=== PATIENT | male | born 1965 | race Hispanic/Latino ===

== ENCOUNTER 2020-08-26 15:41 | Emergency (ER) | payer OTHER, SELFPAY ==
[~2020-08-26 15:41] MED LIST: Iopamidol-370 76% 500 ML 1 ML ONE
[2020-08-26] MEDS ORDERED: Ondansetron PF 4 MG/2 ML Vial ONE (16:25)
[2020-08-26] MEDS ORDERED: Morphine 4 MG/ML VIAL ONE (16:25)
[2020-08-26 16:27] LABS: #Eosinphils 0.6 thou/uL (0.0-0.7); #Lymphocytes 1.9 thou/uL (1.20-3.40); #Monocytes 1.1 thou/uL (0.11-0.59); #Neutrophils 4.2 thou/uL (1.40-6.50); %Basophils 0.6 % (0.0-1.0); %Eosinophils 7.1 % (0.0-10.0); %Lymphocytes 24.3 % (21.0-51.0); %Monocytes 14.1 % (0.0-10.0); %Neutrophils 53.9 % (42.0-75.0); Hemoglobin 15.7 g/dL (14.0-18.0); Mean Corpuscular HGB CONC 33.5 g/dL (32.0-36.0); Mean Corpuscular Hemoglobin 30.1 pg (27.0-31.0); Mean Corpuscular Volume 89.9 fL (78.0-98.0); Mean Platelet Volume 8.7 fL (7.4-10.4); Platelet Count 179 thou/uL (130-400); RBC Distribution Width 12.3 % (11.5-14.5); Red Blood Cell (RBC) Count 5.23 mill/uL (4.70-6.10); White Blood Cell (WBC) Count 7.8 thou/uL (4.8-10.8)
[2020-08-26 16:56] LABS: ALT (SGPT) 33 U/L (8-55); AST (SGOT) 26 U/L (5-34); Albumin 3.9 g/dL (3.5-5.0); Alkaline Phosphatase 78 U/L (40-110); Anion Gap 13 mmol/L (10-20); BUN (Urea Nitrogen) 23 mg/dL (8.4-25.7); Bilirubin, Total 1.1 mg/dL (0.2-1.2); Calc. Creatinine Clearance 0 mL/min (70-130); Carbon Dioxide 26 mmol/L (22-29); Chloride 103 mmol/L (98-107); Globulin 3.5 g/dL (2.4-3.5); Glucose 136 mg/dL (70-105); Lipase 77 U/L (8-78); Potassium 3.5 mmol/L (3.5-5.1); Protein, Total 7.4 g/dL (6.0-8.3); Sodium 138 mmol/L (136-145)
[2020-08-27 01:57] LABS: SARS-CoV-2 PCR by NAA Not Detected (NotDetected)
== END 2020-08-26 18:34 | disposition home or self-care (01) ==
LOC: ERS 15:41
DX: K42.9 Umbilical hernia without obstruction or gangrene (principal); Z20.822 Contact with and (suspected) exposure to COVID-19
CPT/HCPCS: 74177; 80053; 83605; 83690; 85025; 87635; 96374; 96375; J2270; J2405; Q9967; U0003; U0005

== ENCOUNTER 2021-11-12 09:37 | Inpatient (IN) | payer OTHER, SELFPAY ==
[2021-11-12 10:36] LABS: #Lymphocytes 1.3 thou/uL (1.20-3.40); #Monocytes 1.6 thou/uL (0.11-0.59); #Neutrophils 14.6 thou/uL (1.40-6.50); %Basophils 0.2 % (0.0-1.0); %Eosinophils 0.1 % (0.0-10.0); %Lymphocytes 7.5 % (21.0-51.0); %Neutrophils 83.1 % (42.0-75.0); Mean Corpuscular HGB CONC 32.7 g/dL (32.0-36.0); Mean Corpuscular Hemoglobin 30.5 pg (27.0-31.0); Mean Corpuscular Volume 93.3 fL (78.0-98.0); Mean Platelet Volume 8.9 fL (7.4-10.4); Platelet Count 170 thou/uL (130-400); RBC Distribution Width 12.6 % (11.5-14.5); Red Blood Cell (RBC) Count 5.23 mill/uL (4.70-6.10); White Blood Cell (WBC) Count 17.6 thou/uL (4.8-10.8)
[2021-11-12 10:53] LABS: ALT (SGPT) 27 U/L (8-55); AST (SGOT) 23 U/L (5-34); Albumin 4.2 g/dL (3.5-5.0); Alkaline Phosphatase 81 U/L (40-110); Anion Gap 12 mmol/L (10-20); BUN (Urea Nitrogen) 22 mg/dL (8.4-25.7); Bilirubin, Total 1.6 mg/dL (0.2-1.2); CK (CPK) 216 U/L (30-200); Calc. Creatinine Clearance 0 mL/min (70-130); Calcium 9.6 mg/dL (7.8-10.44); Carbon Dioxide 28 mmol/L (22-29); Chloride 100 mmol/L (98-107); Estimated GFR 56; Globulin 4.1 g/dL (2.4-3.5); Glucose 110 mg/dL (70-105); Lipase 173 U/L (8-78); Potassium 3.5 mmol/L (3.5-5.1); Protein, Total 8.3 g/dL (6.0-8.3); Sodium 136 mmol/L (136-145)
[2021-11-12 11:19] LABS: CKMB 1.2 ng/mL (0-6.6)
[2021-11-12 11:45] LABS: SARS-CoV-2 NAA Rapid Test Not Detected (NotDetected)
[2021-11-12] MEDS ORDERED: Aspirin Chewable 81 MG TAB ONE (11:50)
[2021-11-12 12:30] LABS: Bilirubin Negative (Negative); Blood, Urine 2+ (Negative); Clarity Clear (Clear); Glucose, Urine (Dipstick) 30 mg/dL (Negative); Ketone, Urine 10 mg/dL (Negative); Leukocyte Negative Leu/uL (Negative); Nitrite Negative (Negative); Protein, Urine (Dipstick) 200 mg/dL (Neg-Trace); RBC/HPF 0-3 HPF (0-3); Squamous Epithelial None Seen HPF (0-3); Urobilinogen Normal mg/dL (Less than 2); WBC/HPF 0-3 HPF (0-3)
[2021-11-12 12:32] LABS: Bacteria/HPF Rare-Few HPF (None Seen)
[2021-11-12] MEDS ORDERED: Vancomycin 1 GM/200 ML BAG ONE (12:40)
[2021-11-12] MEDS ORDERED: Cefepime 2 GM VIAL ONE (12:40)
[2021-11-12] MEDS ORDERED: Ondansetron PF 4 MG/2 ML Vial IVP PRN (14:08)
[2021-11-12] MEDS ORDERED: Acetaminophen 325 MG TAB PO PRN (14:08)
[2021-11-12] MEDS ORDERED: Loperamide HCl 2 MG CAP PO PRN (14:13)
[2021-11-12 16:28] LABS: Hemoglobin A1c 5.3 % (4.0-6.0)
[2021-11-12 17:08] LABS: Amphetamine Not Detected (NotDetected); Barbiturates Screen Not Detected (NotDetected); Benzodiazepine Screen Not Detected (NotDetected); Cocaine Metabolite Screen Detected (NotDetected); Methadone Not Detected (NotDetected); Methamphetamine Not Detected (NotDetected); Opiate Screen Not Detected (NotDetected); Oxycodone Screen Not Detected (NotDetected); Phencyclidine (PCP) Not Detected (NotDetected); THC/Cannabinoid Screen Detected (NotDetected); Tricyclic Screen Not Detected (NotDetected)
[2021-11-12 17:08] LABS: Troponin I 0.037 ng/mL (< 0.028)
[2021-11-12] MEDS: Lactated Ringer's 1,000 ML IV SCH (18:16)
[2021-11-12] MEDS ORDERED: Labetalol HCl 100 MG/20 ML VIAL SLOW IVP PRN (18:41)
[2021-11-12] MEDS ORDERED: hydrALAZINE 20 MG/ML VIAL SLOW IVP PRN (18:41)
[2021-11-12] MEDS: Acetaminophen 500 MG TAB PO PRN (20:54)
[2021-11-12] MEDS ORDERED: Famotidine/PF 20 mg/2ml Vial SLOW IVP SCH (21:00)
[2021-11-13] MEDS: Lactated Ringer's 1,000 ML IV SCH ×3 (02:30→21:01)
[2021-11-13] MEDS: Acetaminophen 500 MG TAB PO PRN ×2 (04:19→17:00)
[2021-11-13 05:10] LABS: #Monocytes 1.8 thou/uL (0.11-0.59); #Neutrophils 13.5 thou/uL (1.40-6.50); %Basophils 0.1 % (0.0-1.0); %Eosinophils 0.2 % (0.0-10.0); %Lymphocytes 6.2 % (21.0-51.0); %Monocytes 10.9 % (0.0-10.0); %Neutrophils 82.6 % (42.0-75.0); Hemoglobin 15.4 g/dL (14.0-18.0); Mean Corpuscular HGB CONC 32.8 g/dL (32.0-36.0); Mean Corpuscular Hemoglobin 30.7 pg (27.0-31.0); Mean Corpuscular Volume 93.5 fL (78.0-98.0); Mean Platelet Volume 9.2 fL (7.4-10.4); Platelet Count 162 thou/uL (130-400); RBC Distribution Width 12.6 % (11.5-14.5); White Blood Cell (WBC) Count 16.3 thou/uL (4.8-10.8)
[2021-11-13 05:19] LABS: ALT (SGPT) 25 U/L (8-55); AST (SGOT) 26 U/L (5-34); Albumin 3.9 g/dL (3.5-5.0); Alkaline Phosphatase 71 U/L (40-110); Anion Gap 15 mmol/L (10-20); BUN (Urea Nitrogen) 16 mg/dL (8.4-25.7); Bilirubin, Total 1.3 mg/dL (0.2-1.2); Calc. Creatinine Clearance 87 mL/min (70-130); Calcium 8.8 mg/dL (7.8-10.44); Carbon Dioxide 22 mmol/L (22-29); Cardiac Risk 4.8 (Less than 4.5); Chloride 103 mmol/L (98-107); Cholesterol 162 mg/dl (< 200 Desired); Estimated GFR 74; Globulin 3.9 g/dL (2.4-3.5); Glucose 101 mg/dL (70-105); HDL Cholesterol 34 mg/dL (>60 Neg Risk); LDL Cholesterol, Calculated 105 mg/dL; Potassium 3.6 mmol/L (3.5-5.1); Protein, Total 7.8 g/dL (6.0-8.3); Sodium 136 mmol/L (136-145); Triglycerides 117 mg/dL (Less than 150)
[2021-11-13] MEDS ORDERED: Lorazepam 2 MG/ML VIAL IM PRN (11:21)
[2021-11-13] MEDS ORDERED: Lorazepam 1 MG TAB PO PRN (11:21)
[2021-11-13] MEDS ORDERED: NIFEdipine XL 30 MG TAB PO SCH (11:30)
[2021-11-13] MEDS ORDERED: Folic Acid 1 MG TAB PO SCH (11:30)
[2021-11-13] MEDS ORDERED: Multivit, Therapeutic 1 TAB PO SCH (11:30)
[2021-11-13] MEDS ORDERED: Electrolyte Replacement Protocol 1 EACH FS SCH (11:30)
[2021-11-13] MEDS: Lorazepam 1 MG TAB PO SCH ×2 (12:00→17:01)
[2021-11-13] MEDS: Thiamine HCl 200 MG/2 ML VIAL SLOW IVP SCH (12:01)
[2021-11-13] MEDS: Ondansetron ODT 4 MG TAB PO PRN (12:05)
[2021-11-13 12:36] LABS: Phosphorus 1.3 mg/dL (2.3-4.7)
[2021-11-13] MEDS ORDERED: Magnesium 2 GM/50 ML(in water) 2 GM in Premix Bag 1 BAG IVPB SCH (14:00)
[2021-11-13] MEDS ORDERED: Potassium Phosphate 9 MMOL in Sodium Chloride 0.9% 100 ML IVPB SCH (14:00)
[2021-11-13] MEDS: PHOS-NAK 1 PKT PACK PO SCH ×3 (14:51→21:08)
[2021-11-13 14:58] LABS: Syphilis Antibody Nonreactive (Nonreactive); Syphilis Antibody Index 0.06 S/CO (<1.00 Non-Reactive)
[2021-11-14] MEDS: Lorazepam 1 MG TAB PO SCH ×3 (00:01→10:04)
[2021-11-14] MEDS: Lactated Ringer's 1,000 ML IV SCH ×3 (00:01→17:42)
[2021-11-14] MEDS: Ondansetron ODT 4 MG TAB PO PRN (00:06)
[2021-11-14] MEDS: PHOS-NAK 1 PKT PACK PO SCH (02:14)
[2021-11-14] MEDS: Acetaminophen 500 MG TAB PO PRN ×2 (02:19→21:32)
[2021-11-14 05:00] LABS: #Lymphocytes 1.7 thou/uL (1.20-3.40); #Monocytes 2.3 thou/uL (0.11-0.59); #Neutrophils 11.5 thou/uL (1.40-6.50); %Basophils 0.1 % (0.0-1.0); %Eosinophils 0.3 % (0.0-10.0); %Lymphocytes 11.1 % (21.0-51.0); %Monocytes 14.7 % (0.0-10.0); %Neutrophils 73.8 % (42.0-75.0); Hemoglobin 14.2 g/dL (14.0-18.0); Mean Corpuscular HGB CONC 33.1 g/dL (32.0-36.0); Mean Corpuscular Hemoglobin 31.1 pg (27.0-31.0); Mean Platelet Volume 8.7 fL (7.4-10.4); Platelet Count 172 thou/uL (130-400); RBC Distribution Width 12.6 % (11.5-14.5); Red Blood Cell (RBC) Count 4.57 mill/uL (4.70-6.10); White Blood Cell (WBC) Count 15.6 thou/uL (4.8-10.8)
[2021-11-14 05:19] LABS: ALT (SGPT) 36 U/L (8-55); AST (SGOT) 35 U/L (5-34); Albumin 3.6 g/dL (3.5-5.0); Alkaline Phosphatase 61 U/L (40-110); Anion Gap 14 mmol/L (10-20); BUN (Urea Nitrogen) 17 mg/dL (8.4-25.7); Calc. Creatinine Clearance 87 mL/min (70-130); Calcium 8.3 mg/dL (7.8-10.44); Carbon Dioxide 24 mmol/L (22-29); Chloride 102 mmol/L (98-107); Estimated GFR 73; Globulin 3.6 g/dL (2.4-3.5); Glucose 103 mg/dL (70-105); Potassium 3.6 mmol/L (3.5-5.1); Protein, Total 7.2 g/dL (6.0-8.3); Sodium 136 mmol/L (136-145)
[2021-11-14 06:23] LABS: Phosphorus 3.5 mg/dL (2.3-4.7)
[2021-11-14] MEDS ORDERED: ISOVUE-370 76%-LOCM 1 ML ONE (08:00)
[2021-11-14] MEDS: Folic Acid 1 MG TAB PO SCH (08:38)
[2021-11-14] MEDS: Multivit, Therapeutic 1 TAB PO SCH (08:38)
[2021-11-14] MEDS: NIFEdipine XL 30 MG TAB PO SCH (08:39)
[2021-11-14] MEDS ORDERED: chlordiazePOXIDE HCl 25 MG CAP PO SCH (09:00)
[2021-11-14] MEDS: Enoxaparin Sodium 40 MG/0.4 ML SYRINGE SC SCH (10:03)
[2021-11-14 11:03] LABS: Actual Bicarbonate (HCO3a) 25.6 mEq/L (22-28); CO2 Tension 45.1 mmHg (35.0-45.0); Calcium, Ionized (arterial) 1.15 mmol/L (1.12-1.30); Carboxyhemoglobin (COHb) 1.2 gm% (0.0-3.0); Hemoglobin (Hb) 14.9 g/dL (14.0-18.0); Potassium - ABG Lab 3.57 mmol/L (3.70-5.30); pH, Arterial 7.37 (7.35-7.45)
[2021-11-14 11:10] LABS: O2 Tension (PaO2), arterial 35.8 mmHg (80.0-100.0)
[2021-11-14 11:11] LABS: ALV-art Gradient 57.555 mmHg (0-20); Puncture Site RRA
[2021-11-14] MEDS ORDERED: Lorazepam 1 MG TAB PO PRN (11:22)
[2021-11-14] MEDS ORDERED: Ventilator Sedation Protocol 1 EACH FS ONE (11:55)
[2021-11-14] MEDS: Vecuronium 10 MG VIAL IV PRN ×10 (12:07→23:16)
[2021-11-14 12:11] LABS: Base Excess (BEa) 1.1 mEq/L (-2.0 to +3.0); CO2 Tension 33.4 mmHg (35.0-45.0); Calcium, Ionized (arterial) 1.07 mmol/L (1.12-1.30); Carboxyhemoglobin (COHb) 0.7 gm% (0.0-3.0); Hemoglobin (Hb) 14.3 g/dL (14.0-18.0); O2 Tension (PaO2), arterial 86.4 mmHg (80.0-100.0); Potassium - ABG Lab 3.31 mmol/L (3.70-5.30); pH, Arterial 7.48 (7.35-7.45)
[2021-11-14 12:12] LABS: Puncture Site LRA
[2021-11-14] MEDS ORDERED: Propofol BOLUS 1,000 MG/100 ML VIAL IV PRN (12:15)
[2021-11-14] MEDS ORDERED: Morphine 4 MG/ML VIAL SLOW IVP PRN (12:15)
[2021-11-14] MEDS ORDERED: Fentanyl BOLUS 250 ML IVPB PRN (12:15)
[2021-11-14] MEDS ORDERED: DISCONTINUE PREVIOUS NARCOTIC PAIN MEDICATIONS AND BENZODIAZEPINES FS SCH (12:15)
[2021-11-14] MEDS: Propofol 1,000 MG/100 ML VIAL IV PRN ×3 (12:44→17:39)
[2021-11-14 13:15] LABS: Amphetamine Not Detected (NotDetected); Barbiturates Screen Not Detected (NotDetected); Benzodiazepine Screen Detected (NotDetected); Cocaine Metabolite Screen Detected (NotDetected); Methadone Not Detected (NotDetected); Methamphetamine Not Detected (NotDetected); Opiate Screen Not Detected (NotDetected); Oxycodone Screen Not Detected (NotDetected); Phencyclidine (PCP) Not Detected (NotDetected); THC/Cannabinoid Screen Detected (NotDetected); Tricyclic Screen Not Detected (NotDetected)
[2021-11-14] MEDS: cefTRIAXone\\ROCEPHIN 2 GM in Sodium Chloride 0.9% 100 ML IVPB SCH (13:30)
[2021-11-14] MEDS: Thiamine HCl 200 MG/2 ML VIAL SLOW IVP SCH (13:41)
[2021-11-14] MEDS: Sucralfate 1 GM TAB PO SCH ×3 (13:42→21:33)
[2021-11-14] MEDS ORDERED: Fentanyl CADD 100 ML ONE (15:17)
[2021-11-14 15:21] LABS: Campy jejuni + coli by PCR Negative (Negative); STEC Shiga Toxin 1+2 Negative (Negative); Salmonella spp. by PCR Negative (Negative); Shigella spp + EIEC by PCR Negative (Negative)
[2021-11-14] MEDS: Fentanyl CADD 100 ML IV SCH (15:21)
[2021-11-14] MEDS ORDERED: Famotidine/PF 20 mg/2ml Vial SLOW IVP SCH (21:00)
[2021-11-14] MEDS ORDERED: Lactated Ringer's 1,000 ML IV SCH (21:15)
[2021-11-14] MEDS: Sodium Chloride 0.9% 1,000 ML IV SCH (21:33)
[2021-11-15] MEDS: Sodium Chloride 0.9% 1,000 ML IV SCH ×2 (00:35→09:10)
[2021-11-15] MEDS: Vecuronium 10 MG VIAL IV PRN ×8 (00:39→15:39)
[2021-11-15] MEDS: Propofol 1,000 MG/100 ML VIAL IV PRN ×5 (02:11→21:17)
[2021-11-15 03:58] LABS: #Basophils 0.1 thou/uL (0.0-0.2); #Eosinphils 0.1 thou/uL (0.0-0.7); #Lymphocytes 1.8 thou/uL (1.20-3.40); #Monocytes 2.1 thou/uL (0.11-0.59); %Basophils 0.5 % (0.0-1.0); %Eosinophils 0.8 % (0.0-10.0); %Lymphocytes 12.8 % (21.0-51.0); %Monocytes 14.9 % (0.0-10.0); %Neutrophils 70.9 % (42.0-75.0); Mean Corpuscular HGB CONC 34.3 g/dL (32.0-36.0); Mean Corpuscular Hemoglobin 31.5 pg (27.0-31.0); Mean Platelet Volume 9.1 fL (7.4-10.4); Platelet Count 146 thou/uL (130-400); RBC Distribution Width 12.5 % (11.5-14.5); Red Blood Cell (RBC) Count 4.45 mill/uL (4.70-6.10); White Blood Cell (WBC) Count 14.2 thou/uL (4.8-10.8)
[2021-11-15 04:21] LABS: ALT (SGPT) 26 U/L (8-55); AST (SGOT) 26 U/L (5-34); Albumin 2.9 g/dL (3.5-5.0); Alkaline Phosphatase 56 U/L (40-110); Anion Gap 16 mmol/L (10-20); BUN (Urea Nitrogen) 17 mg/dL (8.4-25.7); Bilirubin, Total 1.1 mg/dL (0.2-1.2); Calc. Creatinine Clearance 93 mL/min (70-130); Calcium 8.3 mg/dL (7.8-10.44); Carbon Dioxide 19 mmol/L (22-29); Chloride 104 mmol/L (98-107); Estimated GFR 80; Globulin 3.3 g/dL (2.4-3.5); Glucose 74 mg/dL (70-105); Potassium 3.4 mmol/L (3.5-5.1); Protein, Total 6.2 g/dL (6.0-8.3); Sodium 136 mmol/L (136-145)
[2021-11-15] MEDS: Acetaminophen 500 MG TAB PO PRN ×3 (05:36→21:43)
[2021-11-15] MEDS ORDERED: Sterile Water 10 ML ONE (06:49)
[2021-11-15] MEDS: Potassium Chloride 20 MEQ in Premix Bag 1 BAG IVPB SCH ×2 (06:54→09:06)
[2021-11-15] MEDS ORDERED: Fentanyl CADD 100 ML ONE (08:00)
[2021-11-15] MEDS: Fentanyl CADD 100 ML IV SCH ×2 (08:03→21:20)
[2021-11-15] MEDS: Sucralfate 1 GM TAB PO SCH ×4 (08:38→21:31)
[2021-11-15] MEDS: Enoxaparin Sodium 40 MG/0.4 ML SYRINGE SC SCH (08:44)
[2021-11-15] MEDS: Pantoprazole 40 MG VIAL IVP SCH (08:44)
[2021-11-15] MEDS: Folic Acid 1 MG TAB PO SCH (08:45)
[2021-11-15] MEDS: NIFEdipine XL 30 MG TAB PO SCH (08:45)
[2021-11-15] MEDS: Multivit, Therapeutic 1 TAB PO SCH (08:45)
[2021-11-15] MEDS: Lorazepam 2 MG/ML VIAL SLOW IVP PRN ×3 (10:08→13:36)
[2021-11-15] MEDS ORDERED: Furosemide 20 MG/2 ML VIAL SLOW IVP SCH (11:15)
[2021-11-15] MEDS: Thiamine HCl 200 MG/2 ML VIAL SLOW IVP SCH (11:18)
[2021-11-15] MEDS ORDERED: Lorazepam 1 MG TAB PO PRN (11:22)
[2021-11-15] MEDS ORDERED: Lorazepam 0.5 MG TAB PO SCH (11:30)
[2021-11-15] MEDS: cefTRIAXone\\ROCEPHIN 2 GM in Sodium Chloride 0.9% 100 ML IVPB SCH (13:21)
[2021-11-16] MEDS: Propofol 1,000 MG/100 ML VIAL IV PRN ×7 (00:37→22:36)
[2021-11-16 03:55] LABS: #Basophils 0.1 thou/uL (0.0-0.2); #Eosinphils 0.4 thou/uL (0.0-0.7); #Lymphocytes 1.2 thou/uL (1.20-3.40); #Monocytes 1.5 thou/uL (0.11-0.59); %Basophils 0.6 % (0.0-1.0); %Lymphocytes 8.9 % (21.0-51.0); %Monocytes 11.3 % (0.0-10.0); %Neutrophils 76.1 % (42.0-75.0); Hemoglobin 12.2 g/dL (14.0-18.0); Mean Corpuscular HGB CONC 32.6 g/dL (32.0-36.0); Mean Corpuscular Hemoglobin 30.3 pg (27.0-31.0); Mean Corpuscular Volume 92.7 fL (78.0-98.0); Mean Platelet Volume 9.3 fL (7.4-10.4); Platelet Count 183 thou/uL (130-400); RBC Distribution Width 12.6 % (11.5-14.5); Red Blood Cell (RBC) Count 4.02 mill/uL (4.70-6.10); White Blood Cell (WBC) Count 13.1 thou/uL (4.8-10.8)
[2021-11-16 04:18] LABS: ALT (SGPT) 20 U/L (8-55); AST (SGOT) 17 U/L (5-34); Albumin 2.7 g/dL (3.5-5.0); Alkaline Phosphatase 55 U/L (40-110); Anion Gap 15 mmol/L (10-20); BUN (Urea Nitrogen) 18 mg/dL (8.4-25.7); Bilirubin, Total 0.7 mg/dL (0.2-1.2); Calc. Creatinine Clearance 83 mL/min (70-130); Calcium 8.1 mg/dL (7.8-10.44); Carbon Dioxide 21 mmol/L (22-29); Chloride 104 mmol/L (98-107); Estimated GFR 70; Globulin 3.3 g/dL (2.4-3.5); Glucose 81 mg/dL (70-105); Potassium 3.1 mmol/L (3.5-5.1); Sodium 137 mmol/L (136-145)
[2021-11-16] MEDS: Potassium Chloride 20 MEQ in Premix Bag 1 BAG IVPB SCH ×2 (06:05→09:45)
[2021-11-16] MEDS: Fentanyl CADD 100 ML IV SCH ×2 (06:51→16:57)
[2021-11-16 07:04] LABS: Actual Bicarbonate (HCO3a) 19.4 mEq/L (22-28); Calcium, Ionized (arterial) 1.12 mmol/L (1.12-1.30); Carboxyhemoglobin (COHb) 0.3 gm% (0.0-3.0); Hemoglobin (Hb) 13.4 g/dL (14.0-18.0); O2 Tension (PaO2), arterial 64.8 mmHg (80.0-100.0); Potassium - ABG Lab 3.09 mmol/L (3.70-5.30); pH, Arterial 7.51 (7.35-7.45)
[2021-11-16 07:26] LABS: CO2 Tension 24.8 mmHg (35.0-45.0); Puncture Site LRA
[2021-11-16] MEDS: Sucralfate 1 GM TAB PO SCH ×4 (08:06→20:03)
[2021-11-16] MEDS: Enoxaparin Sodium 40 MG/0.4 ML SYRINGE SC SCH (09:45)
[2021-11-16] MEDS: Pantoprazole 40 MG VIAL IVP SCH (09:46)
[2021-11-16] MEDS: Multivit, Therapeutic 1 TAB PO SCH (09:48)
[2021-11-16] MEDS: Folic Acid 1 MG TAB PO SCH (09:48)
[2021-11-16] MEDS: NIFEdipine XL 30 MG TAB PO SCH (09:49)
[2021-11-16] MEDS ORDERED: Lorazepam 0.5 MG TAB PO PRN (11:22)
[2021-11-16] MEDS: Thiamine 100 MG TAB PO SCH (11:57)
[2021-11-16] MEDS: cefTRIAXone\\ROCEPHIN 2 GM in Sodium Chloride 0.9% 100 ML IVPB SCH (12:14)
[2021-11-17] MEDS: Fentanyl CADD 100 ML IV SCH (00:37)
[2021-11-17] MEDS: Lorazepam 2 MG/ML VIAL SLOW IVP PRN (01:44)
[2021-11-17] MEDS: Propofol 1,000 MG/100 ML VIAL IV PRN ×2 (01:44→05:21)
[2021-11-17 04:05] LABS: #Eosinphils 0.5 thou/uL (0.0-0.7); #Lymphocytes 1.2 thou/uL (1.20-3.40); #Monocytes 1.1 thou/uL (0.11-0.59); #Neutrophils 7.9 thou/uL (1.40-6.50); %Basophils 0.1 % (0.0-1.0); %Eosinophils 4.3 % (0.0-10.0); %Lymphocytes 11.1 % (21.0-51.0); %Neutrophils 74.5 % (42.0-75.0); Hemoglobin 12.2 g/dL (14.0-18.0); Mean Corpuscular HGB CONC 32.4 g/dL (32.0-36.0); Mean Corpuscular Hemoglobin 30.4 pg (27.0-31.0); Mean Corpuscular Volume 93.9 fL (78.0-98.0); Mean Platelet Volume 9.5 fL (7.4-10.4); Platelet Count 202 thou/uL (130-400); RBC Distribution Width 12.9 % (11.5-14.5); Red Blood Cell (RBC) Count 4.02 mill/uL (4.70-6.10); White Blood Cell (WBC) Count 10.6 thou/uL (4.8-10.8)
[2021-11-17 04:28] LABS: ALT (SGPT) 19 U/L (8-55); AST (SGOT) 19 U/L (5-34); Albumin 2.8 g/dL (3.5-5.0); Alkaline Phosphatase 79 U/L (40-110); Anion Gap 14 mmol/L (10-20); BUN (Urea Nitrogen) 18 mg/dL (8.4-25.7); Bilirubin, Total 0.6 mg/dL (0.2-1.2); Calc. Creatinine Clearance 115 mL/min (70-130); Calcium 8.5 mg/dL (7.8-10.44); Carbon Dioxide 22 mmol/L (22-29); Chloride 105 mmol/L (98-107); Estimated GFR 101; Globulin 3.5 g/dL (2.4-3.5); Glucose 78 mg/dL (70-105); Potassium 3.2 mmol/L (3.5-5.1); Protein, Total 6.3 g/dL (6.0-8.3); Sodium 138 mmol/L (136-145)
[2021-11-17 07:14] LABS: CO2 Tension 29.3 mmHg (35.0-45.0); Calcium, Ionized (arterial) 1.13 mmol/L (1.12-1.30); Carboxyhemoglobin (COHb) 0.4 gm% (0.0-3.0); Hemoglobin (Hb) 15.3 g/dL (14.0-18.0); O2 Tension (PaO2), arterial 98.7 mmHg (80.0-100.0); Potassium - ABG Lab 3.12 mmol/L (3.70-5.30); pH, Arterial 7.49 (7.35-7.45)
[2021-11-17 07:35] LABS: Puncture Site LRA
[2021-11-17 07:36] LABS: ALV-art Gradient 185.525 mmHg (0-20)
[2021-11-17] MEDS: Multivit, Therapeutic 1 TAB PO SCH (07:57)
[2021-11-17] MEDS: Folic Acid 1 MG TAB PO SCH (07:58)
[2021-11-17] MEDS: Sucralfate 1 GM TAB PO SCH ×4 (08:16→21:01)
[2021-11-17 09:43] LABS: Magnesium 2.1 mg/dL (1.6-2.6)
[2021-11-17] MEDS ORDERED: Simethicone Chewable 80 MG TAB PO PRN (10:17)
[2021-11-17] MEDS: Enoxaparin Sodium 40 MG/0.4 ML SYRINGE SC SCH (10:22)
[2021-11-17] MEDS: Potassium Chloride 20 MEQ in Premix Bag 1 BAG IVPB SCH ×2 (10:22→14:42)
[2021-11-17] MEDS: Pantoprazole 40 MG VIAL IVP SCH ×2 (10:23→21:01)
[2021-11-17] MEDS ORDERED: Simethicone Chewable 80 MG TAB PO SCH (10:30)
[2021-11-17] MEDS ORDERED: Potassium Chloride 20 MEQ in Premix Bag 1 BAG IVPB SCH (13:00)
[2021-11-17] MEDS: cefTRIAXone\\ROCEPHIN 2 GM in Sodium Chloride 0.9% 100 ML IVPB SCH (13:44)
[2021-11-17] MEDS: Thiamine 100 MG TAB PO SCH (13:47)
[2021-11-17] MEDS: NIFEdipine XL 30 MG TAB PO SCH (13:48)
[2021-11-17 23:13] LABS: Norovirus GI Negative (Negative); Norovirus GII Negative (Negative)
[2021-11-17] MEDS ORDERED: Melatonin 3 MG TAB PO PRN (23:15)
[2021-11-18 06:11] LABS: #Eosinphils 0.5 thou/uL (0.0-0.7); #Lymphocytes 1.6 thou/uL (1.20-3.40); #Monocytes 1.3 thou/uL (0.11-0.59); #Neutrophils 8.9 thou/uL (1.40-6.50); %Basophils 0.2 % (0.0-1.0); %Eosinophils 4.4 % (0.0-10.0); %Monocytes 10.6 % (0.0-10.0); %Neutrophils 71.9 % (42.0-75.0); Hemoglobin 12.9 g/dL (14.0-18.0); Mean Corpuscular HGB CONC 32.6 g/dL (32.0-36.0); Mean Corpuscular Hemoglobin 30.4 pg (27.0-31.0); Mean Corpuscular Volume 93.1 fL (78.0-98.0); Mean Platelet Volume 8.2 fL (7.4-10.4); Platelet Count 320 thou/uL (130-400); RBC Distribution Width 12.9 % (11.5-14.5); Red Blood Cell (RBC) Count 4.26 mill/uL (4.70-6.10); White Blood Cell (WBC) Count 12.4 thou/uL (4.8-10.8)
[2021-11-18 06:31] LABS: ALT (SGPT) 28 U/L (8-55); AST (SGOT) 36 U/L (5-34); Albumin 3.2 g/dL (3.5-5.0); Alkaline Phosphatase 137 U/L (40-110); Anion Gap 16 mmol/L (10-20); BUN (Urea Nitrogen) 16 mg/dL (8.4-25.7); Calc. Creatinine Clearance 115 mL/min (70-130); Calcium 8.7 mg/dL (7.8-10.44); Carbon Dioxide 22 mmol/L (22-29); Chloride 105 mmol/L (98-107); Estimated GFR 102; Glucose 90 mg/dL (70-105); Potassium 3.3 mmol/L (3.5-5.1); Protein, Total 7.2 g/dL (6.0-8.3); Sodium 140 mmol/L (136-145)
[2021-11-18] MEDS ORDERED: Loperamide HCl 2 MG CAP PO PRN (07:43)
[2021-11-18] MEDS ORDERED: Potassium Chloride 20 MEQ TAB PO SCH (08:00)
[2021-11-18] MEDS: Pantoprazole 40 MG VIAL IVP SCH ×2 (08:39→21:07)
[2021-11-18] MEDS: Enoxaparin Sodium 40 MG/0.4 ML SYRINGE SC SCH (08:39)
[2021-11-18] MEDS: NIFEdipine XL 30 MG TAB PO SCH (08:40)
[2021-11-18] MEDS: Sucralfate 1 GM TAB PO SCH ×4 (08:41→21:07)
[2021-11-18] MEDS: Folic Acid 1 MG TAB PO SCH (08:42)
[2021-11-18] MEDS: Cefdinir 300 MG CAP PO SCH (08:42)
[2021-11-18 10:02] VITALS: BMI 31.4
[2021-11-18] MEDS: Multivit, Therapeutic 1 TAB PO SCH (11:23)
[2021-11-18] MEDS: Thiamine 100 MG TAB PO SCH (11:24)
[2021-11-19 05:43] LABS: #Eosinphils 0.9 thou/uL (0.0-0.7); #Lymphocytes 2.4 thou/uL (1.20-3.40); #Monocytes 1.6 thou/uL (0.11-0.59); #Neutrophils 7.3 thou/uL (1.40-6.50); %Basophils 0.4 % (0.0-1.0); %Eosinophils 7.2 % (0.0-10.0); %Lymphocytes 19.6 % (21.0-51.0); %Monocytes 13.3 % (0.0-10.0); %Neutrophils 59.6 % (42.0-75.0); Hemoglobin 12.7 g/dL (14.0-18.0); Mean Corpuscular HGB CONC 32.8 g/dL (32.0-36.0); Mean Corpuscular Hemoglobin 30.6 pg (27.0-31.0); Mean Corpuscular Volume 93.4 fL (78.0-98.0); Mean Platelet Volume 8.1 fL (7.4-10.4); Platelet Count 371 thou/uL (130-400); RBC Distribution Width 12.6 % (11.5-14.5); Red Blood Cell (RBC) Count 4.14 mill/uL (4.70-6.10); White Blood Cell (WBC) Count 12.2 thou/uL (4.8-10.8)
[2021-11-19 06:35] LABS: ALT (SGPT) 52 U/L (8-55); AST (SGOT) 54 U/L (5-34); Albumin 3.1 g/dL (3.5-5.0); Alkaline Phosphatase 116 U/L (40-110); Anion Gap 13 mmol/L (10-20); BUN (Urea Nitrogen) 17 mg/dL (8.4-25.7); Bilirubin, Total 0.7 mg/dL (0.2-1.2); Calc. Creatinine Clearance 108 mL/min (70-130); Calcium 8.7 mg/dL (7.8-10.44); Carbon Dioxide 24 mmol/L (22-29); Chloride 106 mmol/L (98-107); Estimated GFR 95; Globulin 3.7 g/dL (2.4-3.5); Glucose 96 mg/dL (70-105); Potassium 3.3 mmol/L (3.5-5.1); Protein, Total 6.8 g/dL (6.0-8.3); Sodium 140 mmol/L (136-145)
[2021-11-19] MEDS: Enoxaparin Sodium 40 MG/0.4 ML SYRINGE SC SCH (08:08)
[2021-11-19] MEDS: Sucralfate 1 GM TAB PO SCH ×2 (08:08→11:17)
[2021-11-19] MEDS: Cefdinir 300 MG CAP PO SCH (08:08)
[2021-11-19] MEDS: Pantoprazole 40 MG VIAL IVP SCH (08:09)
[2021-11-19] MEDS: Folic Acid 1 MG TAB PO SCH (08:09)
[2021-11-19] MEDS: Multivit, Therapeutic 1 TAB PO SCH (08:09)
[2021-11-19] MEDS: NIFEdipine XL 30 MG TAB PO SCH (08:09)
[2021-11-19] MEDS ORDERED: Potassium Chloride 20 MEQ TAB PO SCH (09:00)
[2021-11-19] MEDS ORDERED: Venlafaxine HCl XR 75 MG CAP PO SCH (10:00)
[2021-11-19] MEDS: Thiamine 100 MG TAB PO SCH (11:17)
[2021-11-19 14:10] VITALS: BP 150/99; TEMP 98
[2021-11-20 13:48] LABS: ANA Symphony (Qualitative) Equivocal: See Note (Negative); ANA Symphony (Quantitative) 0.7 Ratio (< 0.7 Negative); dsDNA IgG Antibody 1.2 IU/mL (<10 Negative)
== END 2021-11-19 14:22 | disposition home or self-care (01) | DRG 391 ==
LOC: ERS 09:37 → ERHOLD 13:23 → 2SW 15:40 → CCU 11-14 11:16 → T4-B 11-18 10:00
PROVIDERS: ADMIT Family Medicine; ATTEND Family Medicine
PROC: 5A1945Z Respiratory Ventilation, 24-96 Consecutive Hours (ICD-10-PCS; principal; 2021-11-14)
PROC: 0BH18EZ Insertion of Endotracheal Airway into Trachea, Via Natural or Artificial Opening Endoscopic (ICD-10-PCS; 2021-11-14)
PROC: 0D9670Z Drainage of Stomach with Drainage Device, Via Natural or Artificial Opening (ICD-10-PCS; 2021-11-14)
DX: K29.80 Duodenitis without bleeding (principal); J96.01 Acute respiratory failure with hypoxia; J18.9 Pneumonia, unspecified organism; N17.9 Acute kidney failure, unspecified; F10.239 Alcohol dependence with withdrawal, unspecified; R65.10 Systemic inflammatory response syndrome (SIRS) of non-infectious origin without acute organ dysfunction; A08.4 Viral intestinal infection, unspecified; Z20.822 Contact with and (suspected) exposure to COVID-19; I10 Essential (primary) hypertension; K21.9 Gastro-esophageal reflux disease without esophagitis; E83.39 Other disorders of phosphorus metabolism; F14.90 Cocaine use, unspecified, uncomplicated; G47.33 Obstructive sleep apnea (adult) (pediatric); D89.2 Hypergammaglobulinemia, unspecified; N28.89 Other specified disorders of kidney and ureter; K42.9 Umbilical hernia without obstruction or gangrene; F12.90 Cannabis use, unspecified, uncomplicated; Z98.890 Other specified postprocedural states; Z84.1 Family history of disorders of kidney and ureter; Z87.891 Personal history of nicotine dependence; Z78.1 Physical restraint status
CPT/HCPCS: 36415; 36600; 71045; 71275; 74177; 80053; 80061; 80306; 81003; 81015; 82550; 82553; 82805; 83036; 83690; 83735; 83880; 84100; 84145; 84443; 84484; 85025; 85379; 85652; 86038; 86225; 86780; 87040; 87086; 87328; 87329; 87505; 87633; 87798; 93005; 93010; 94002; 94003; 96361; 96365; 96375; C9113; J0692; J0696; J1650; J1940; J2060; J2270; J2704; J3010; J3370; J3411; J3475; J3480; J3490; J7050; J7120; Q0162; Q9966; S0028; U0002; U0003; U0005

== ENCOUNTER 2024-05-19 09:27 | Inpatient (IN) | payer OTHER, SELFPAY ==
[2024-05-19] MEDS ORDERED: predniSONE 20 MG TAB ONE (10:14)
[2024-05-19] MEDS ORDERED: Ipratropium/Albuterol 3 ML NEB ONE (10:14)
[2024-05-19 10:44] LABS: #Basophils 0.05 10x3/uL (0.0-0.2); %Basophils 0.5 % (0.0-1.0); %Eosinophils 5.8 % (0.0-10.0); %Monocytes 8.3 % (0.0-10.0); %Neutrophils 69.1 % (42.0-75.0); Hematocrit 43.3 % (42.0-52.0); Hemoglobin 14.1 g/dL (14.0-18.0); Mean Corpuscular HGB CONC 32.6 g/dL (32.0-36.0); Mean Corpuscular Hemoglobin 29.6 pg (27.0-31.0); Mean Platelet Volume 10.5 fL (7.4-10.4); Platelet Count 214 10x3/uL (130-400); RBC Distribution Width 13.6 % (11.5-14.5); Red Blood Cell (RBC) Count 4.76 mill/uL (4.70-6.10)
[2024-05-19 11:07] LABS: ALT (SGPT) 27 U/L (8-55); AST (SGOT) 28 U/L (5-34); Albumin 3.8 g/dL (3.5-5.0); Alkaline Phosphatase 72 U/L (40-110); Anion Gap 12 mmol/L (10-20); BUN (Urea Nitrogen) 27 mg/dL (8.4-25.7); Bilirubin, Total 0.9 mg/dL (0.2-1.2); Calc. Creatinine Clearance 0 mL/min (70-130); Calcium 8.5 mg/dL (7.8-10.44); Carbon Dioxide 26 mmol/L (22-29); Chloride 108 mmol/L (98-107); Estimated GFR 71; Globulin 3.4 g/dL (2.4-3.5); Glucose 96 mg/dL (70-105); Protein, Total 7.2 g/dL (6.0-8.3); Sodium 142 mmol/L (136-145)
[2024-05-19 11:31] LABS: Troponin I 0.049 ng/mL (< 0.028)
[2024-05-19] MEDS ORDERED: Aspirin Chewable 81 MG TAB ONE (12:03)
[2024-05-19] MEDS ORDERED: Nitroglycerin 2% Ointment 1 INCH/1 GM Packet ONE ×2 (12:46→12:47)
[2024-05-19] MEDS ORDERED: Furosemide 20 MG (2 mL) VIAL ONE (12:46)
[2024-05-19] MEDS ORDERED: Acetaminophen 325 MG TAB PO PRN (13:43)
[2024-05-19] MEDS ORDERED: hydrALAZINE 20 MG/ML VIAL SLOW IVP PRN (13:59)
[2024-05-19 14:27] LABS: Alcohol Less than 10.0 mg/dL (Less than 10)
[2024-05-19 14:30] LABS: Cardiac Risk 4.2 (Less than 4.5); Cholesterol 179 mg/dl (< 200 Desired); HDL Cholesterol 43 mg/dL (>60 Neg Risk); LDL Cholesterol, Calculated 119 mg/dL; Triglycerides 83 mg/dL (Less than 150)
[2024-05-19 14:32] LABS: Troponin I 0.052 ng/mL (< 0.028)
[2024-05-19 16:43] VITALS: BMI 27.6
[2024-05-19] MEDS: Losartan 25 MG TAB PO SCH (16:45)
[2024-05-19 17:36] LABS: Amphetamine Not Detected (NotDetected); Barbiturates Screen Not Detected (NotDetected); Benzodiazepine Screen Not Detected (NotDetected); Cocaine Metabolite Screen Detected (NotDetected); Methadone Not Detected (NotDetected); Methamphetamine Not Detected (NotDetected); Opiate Screen Not Detected (NotDetected); Oxycodone Screen Not Detected (NotDetected); Phencyclidine (PCP) Not Detected (NotDetected); THC/Cannabinoid Screen Detected (NotDetected); Tricyclic Screen Not Detected (NotDetected)
[2024-05-19 17:46] LABS: Hemoglobin A1c 4.9 % (4.0-6.0)
[2024-05-19 17:53] LABS: Troponin I 0.043 ng/mL (< 0.028)
[2024-05-20 04:42] LABS: #Basophils 0.03 10x3/uL (0.0-0.2); %Basophils 0.2 % (0.0-1.0); %Eosinophils 0.2 % (0.0-10.0); %Lymphocytes 12.5 % (21.0-51.0); %Monocytes 9.2 % (0.0-10.0); %Neutrophils 77.5 % (42.0-75.0); Hematocrit 42.6 % (42.0-52.0); Hemoglobin 13.9 g/dL (14.0-18.0); Mean Corpuscular HGB CONC 32.6 g/dL (32.0-36.0); Mean Corpuscular Hemoglobin 29.6 pg (27.0-31.0); Mean Corpuscular Volume 90.8 fL (78.0-98.0); Mean Platelet Volume 10.9 fL (7.4-10.4); Platelet Count 234 10x3/uL (130-400); RBC Distribution Width 13.7 % (11.5-14.5); Red Blood Cell (RBC) Count 4.69 mill/uL (4.70-6.10)
[2024-05-20 04:55] LABS: ALT (SGPT) 28 U/L (8-55); AST (SGOT) 22 U/L (5-34); Albumin 3.7 g/dL (3.5-5.0); Alkaline Phosphatase 71 U/L (40-110); Anion Gap 10 mmol/L (10-20); BUN (Urea Nitrogen) 28 mg/dL (8.4-25.7); Calc. Creatinine Clearance 72 mL/min (70-130); Carbon Dioxide 26 mmol/L (22-29); Chloride 107 mmol/L (98-107); Estimated GFR 67; Globulin 3.7 g/dL (2.4-3.5); Glucose 99 mg/dL (70-105); Potassium 3.5 mmol/L (3.5-5.1); Protein, Total 7.4 g/dL (6.0-8.3); Sodium 139 mmol/L (136-145)
[2024-05-20] MEDS ORDERED: Regadenoson 0.4 MG/5 ML SYRINGE ONE (09:45)
[2024-05-20] MEDS: Losartan 25 MG TAB PO SCH (09:53)
[2024-05-20] MEDS ORDERED: Communication Order-Pharmacy FS SCH (18:15)
[2024-05-20] MEDS: Aspirin 325 MG TAB PO SCH (18:30)
[2024-05-20] MEDS: Carvedilol 3.125 MG TAB PO SCH (18:30)
[2024-05-20] MEDS: Furosemide 20 MG TAB PO SCH (18:30)
[2024-05-20] MEDS: Atorvastatin Calcium 40 MG TAB PO SCH (20:42)
[2024-05-21 04:48] LABS: #Basophils 0.05 10x3/uL (0.0-0.2); %Basophils 0.5 % (0.0-1.0); %Eosinophils 4.4 % (0.0-10.0); %Lymphocytes 24.7 % (21.0-51.0); %Monocytes 8.3 % (0.0-10.0); %Neutrophils 61.8 % (42.0-75.0); Hematocrit 45.5 % (42.0-52.0); Hemoglobin 14.7 g/dL (14.0-18.0); Mean Corpuscular HGB CONC 32.3 g/dL (32.0-36.0); Mean Corpuscular Hemoglobin 29.7 pg (27.0-31.0); Mean Corpuscular Volume 91.9 fL (78.0-98.0); Platelet Count 232 10x3/uL (130-400); RBC Distribution Width 13.9 % (11.5-14.5); Red Blood Cell (RBC) Count 4.95 mill/uL (4.70-6.10)
[2024-05-21 04:59] LABS: ALT (SGPT) 33 U/L (8-55); AST (SGOT) 25 U/L (5-34); Albumin 3.7 g/dL (3.5-5.0); Alkaline Phosphatase 68 U/L (40-110); Anion Gap 15 mmol/L (10-20); BUN (Urea Nitrogen) 27 mg/dL (8.4-25.7); Bilirubin, Total 1.1 mg/dL (0.2-1.2); Calc. Creatinine Clearance 73 mL/min (70-130); Calcium 8.7 mg/dL (7.8-10.44); Carbon Dioxide 23 mmol/L (22-29); Chloride 109 mmol/L (98-107); Estimated GFR 68; Globulin 3.6 g/dL (2.4-3.5); Glucose 88 mg/dL (70-105); Potassium 3.6 mmol/L (3.5-5.1); Protein, Total 7.3 g/dL (6.0-8.3); Sodium 143 mmol/L (136-145)
[2024-05-21] MEDS: Potassium Chloride 20 MEQ TAB PO SCH (06:18)
[2024-05-21 07:22] LABS: Magnesium 2.3 mg/dL (1.6-2.6)
[2024-05-21] MEDS: Carvedilol 3.125 MG TAB PO SCH (08:32)
[2024-05-21] MEDS: Furosemide 20 MG TAB PO SCH (08:32)
[2024-05-21] MEDS: Sacubitril 24MG/Valsartan 26 MG TAB PO SCH ×2 (08:32→21:27)
[2024-05-21] MEDS: Aspirin 81 mg Enteric Coated Tablet PO SCH (08:33)
[2024-05-21] MEDS ORDERED: CATH FS PRN (10:45)
[2024-05-21] MEDS: Carvedilol 6.25 MG TAB PO SCH (17:37)
[2024-05-22 04:51] LABS: #Basophils 0.08 10x3/uL (0.0-0.2); %Basophils 0.8 % (0.0-1.0); %Eosinophils 4.9 % (0.0-10.0); %Lymphocytes 26.1 % (21.0-51.0); %Monocytes 9.9 % (0.0-10.0); %Neutrophils 57.9 % (42.0-75.0); Hematocrit 44.6 % (42.0-52.0); Hemoglobin 14.4 g/dL (14.0-18.0); Mean Corpuscular HGB CONC 32.3 g/dL (32.0-36.0); Mean Corpuscular Hemoglobin 29.7 pg (27.0-31.0); Mean Platelet Volume 10.8 fL (7.4-10.4); Platelet Count 239 10x3/uL (130-400); RBC Distribution Width 13.7 % (11.5-14.5); Red Blood Cell (RBC) Count 4.85 mill/uL (4.70-6.10)
[2024-05-22 05:15] LABS: ALT (SGPT) 25 U/L (8-55); AST (SGOT) 19 U/L (5-34); Albumin 3.5 g/dL (3.5-5.0); Alkaline Phosphatase 66 U/L (40-110); Anion Gap 13 mmol/L (10-20); BUN (Urea Nitrogen) 33 mg/dL (8.4-25.7); Bilirubin, Total 1.2 mg/dL (0.2-1.2); Calc. Creatinine Clearance 60 mL/min (70-130); Calcium 8.7 mg/dL (7.8-10.44); Carbon Dioxide 28 mmol/L (22-29); Chloride 106 mmol/L (98-107); Estimated GFR 54; Globulin 3.6 g/dL (2.4-3.5); Glucose 90 mg/dL (70-105); Potassium 3.7 mmol/L (3.5-5.1); Protein, Total 7.1 g/dL (6.0-8.3); Sodium 143 mmol/L (136-145)
[2024-05-22] MEDS: Sodium Chloride 0.9% 1,000 ML IV SCH (06:19)
[2024-05-22] MEDS: Potassium Chloride 20 MEQ TAB PO SCH (08:34)
[2024-05-22] MEDS ORDERED: fentaNYL 50 mcg/mL 1 mL Vial ONE (09:04)
[2024-05-22] MEDS ORDERED: Midazolam HCl 2 mg/2 ml Vial ONE (09:04)
[2024-05-22] MEDS ORDERED: diphenhydrAMINE 50 MG/ML VIAL ONE (09:14)
[2024-05-22] MEDS ORDERED: Sodium Chloride 0.9% 200 ML IV PRN (09:48)
[2024-05-22] MEDS ORDERED: Nitroglycerin 0.4 MG TAB (25 Tab Bottle) SL PRN (09:48)
[2024-05-22] MEDS ORDERED: Acetaminophen/Codeine 30-300mg Tablet PO PRN ×2 (09:48)
[2024-05-22] MEDS ORDERED: Iopamidol 370 76% 100 ML VIAL ONE (14:59)
[2024-05-22] MEDS: Carvedilol 6.25 MG TAB PO SCH (17:35)
[2024-05-23 04:14] LABS: #Basophils 0.06 10x3/uL (0.0-0.2); %Basophils 0.6 % (0.0-1.0); %Eosinophils 3.3 % (0.0-10.0); %Lymphocytes 19.3 % (21.0-51.0); %Monocytes 9.5 % (0.0-10.0); Hematocrit 46.8 % (42.0-52.0); Hemoglobin 15.1 g/dL (14.0-18.0); Mean Corpuscular HGB CONC 32.3 g/dL (32.0-36.0); Mean Corpuscular Hemoglobin 29.8 pg (27.0-31.0); Mean Corpuscular Volume 92.5 fL (78.0-98.0); Mean Platelet Volume 10.6 fL (7.4-10.4); Platelet Count 223 10x3/uL (130-400); RBC Distribution Width 13.7 % (11.5-14.5); Red Blood Cell (RBC) Count 5.06 mill/uL (4.70-6.10)
[2024-05-23 04:35] LABS: Anion Gap 10 mmol/L (10-20); BUN (Urea Nitrogen) 29 mg/dL (8.4-25.7); Calc. Creatinine Clearance 73 mL/min (70-130); Calcium 8.8 mg/dL (7.8-10.44); Carbon Dioxide 28 mmol/L (22-29); Chloride 109 mmol/L (98-107); Estimated GFR 68; Glucose 95 mg/dL (70-105); Potassium 4.2 mmol/L (3.5-5.1); Sodium 143 mmol/L (136-145)
[2024-05-23 11:39] VITALS: BP 130/87; TEMP 98
== END 2024-05-23 16:10 | disposition home or self-care (01) | DRG 286 ==
LOC: ERS 09:27 → 2NO 13:52 → OBSVTOIN 05-21 09:18
PROVIDERS: ADMIT Family Medicine; ATTEND Family Medicine
PROC: 4A023N7 Measurement of Cardiac Sampling and Pressure, Left Heart, Percutaneous Approach (ICD-10-PCS; principal; 2024-05-21)
PROC: B2111ZZ Fluoroscopy of Multiple Coronary Arteries using Low Osmolar Contrast (ICD-10-PCS; 2024-05-21)
DX: I11.0 Hypertensive heart disease with heart failure (principal); I50.21 Acute systolic (congestive) heart failure; J21.8 Acute bronchiolitis due to other specified organisms; F14.20 Cocaine dependence, uncomplicated; R94.31 Abnormal electrocardiogram [ECG] [EKG]; F10.90 Alcohol use, unspecified, uncomplicated; F12.90 Cannabis use, unspecified, uncomplicated; Z87.891 Personal history of nicotine dependence; I42.9 Cardiomyopathy, unspecified; Y90.0 Blood alcohol level of less than 20 mg/100 ml
CPT/HCPCS: 36415; 71046; 78452; 80048; 80053; 80061; 80306; 80307; 83036; 83735; 83880; 84443; 84484; 85025; 85379; 93005; 93017; 93306; 93458; 96374; 97139; 99152; 99153; A9502; C1769; C1887; C1894; G0378; J1200; J1940; J2250; J2785; J3010; J7030; J7512; J7620; Q9967